=== PATIENT | female | born 1965 | race Caucasian/White ===

== ENCOUNTER 2016-03-21 22:54 | Emergency (ER) | payer OTHER ==
[~2016-03-21] VITALS: Ht 152.4 cm; Wt 62.5 kg
[~2016-03-21 22:54] MED LIST: ASPIR-LOW81 MG PO; ATENOLOL/CHLOR1 EAC1 PO; BRILINTA90 MG PO; CYANOCOBAL1000 MCG/2 IM; ERGOCALCIF50000 UNIT PO; FLUZONE QU IM; HYDROCHLOROTHIA25 MG PO; IBUPROFEN800 MG PO; KLOR-CON M1010 MEQ PO; LEVOTHYROXINE112 MCG PO; LORATADINE10 M2 PO; MOTRIN IB200 MG PO; NITROSTAT0.4 MG SL; SYNTHROID100 MCG PO; TENORMIN50 MG PO; ZOCOR40 MG PO; ZOLOFT50 MG PO
[2016-03-21 23:44] LABS: HEMATOCRIT 39.9 % (36.0-46.0); MCH 30.3 PG (29.0-34.0); MCHC 35.1 G/DL (30.0-36.0); MCV 86.4 FL (83-99); MEAN PLAT.VOLUME 9.6 uM^3 (9.5-12.4); PLATELET COUNT 288 K/uL (156-360); RBC DIS.WIDTH-SD 40.3 % (39-53); RED BLOOD COUNT 4.62 M/uL (3.80-5.20); WHITE BLOOD COUNT 6.1 K/uL (4.1-10.2)
[2016-03-21 23:53] LABS: CHLORIDE 108 mEq/L (99-109); POTASSIUM 3.7 mEq/L (3.7-5.4); SODIUM 143 mEq/L (136-147)
[2016-03-21 23:55] LABS: GLUCOSE 92 mg/dL (70-99)
[2016-03-21 23:57] LABS: ANION GAP 10 MEQ/L (2-14)
[2016-03-21 23:59] LABS: GFR ESTIMATE (CALCULATED) 55 mL/min/
[2016-03-22] LABS: UREA NITROGEN (BUN) 13 mg/dL (9-23)
[2016-03-22 00:36] LABS: TROP-I INTERPRETATION NEGATIVE; TROPONIN-I < 0.01 ng/mL (0.0-0.30)
[2016-03-22 04:09] LABS: TROP-I INTERPRETATION NEGATIVE; TROPONIN-I < 0.01 ng/mL (0.0-0.30)
[2016-03-22 10:17] VITALS: BP 131/83
== END 2016-03-22 10:19 | disposition home or self-care (01) ==
LOC: EME 22:54
PROVIDERS: Personal Emergency Response Attendant
DX: M25.511 Pain in right shoulder (principal); R07.89 Other chest pain; R42 Dizziness and giddiness; I10 Essential (primary) hypertension; E78.5 Hyperlipidemia, unspecified; F17.200 Nicotine dependence, unspecified, uncomplicated
CPT/HCPCS: 80048; 84484; 85027; 93005; 99281; 99284

== ENCOUNTER 2016-08-22 08:46 | Day surgery (SDC) | payer OTHER ==
[~2016-08-22] VITALS: Ht 152.4 cm; Wt 63.0 kg
[~2016-08-22 08:46] MED LIST changes: +ATENOLOL50 MG PO; +LIPITOR40 MG PO
== END 2016-08-22 16:02 | disposition home or self-care (01) ==
LOC: CATH 08:46
DX: R94.39 Abnormal result of other cardiovascular function study (principal); R07.9 Chest pain, unspecified; I25.10 Atherosclerotic heart disease of native coronary artery without angina pectoris; Z95.5 Presence of coronary angioplasty implant and graft; I25.2 Old myocardial infarction; F17.200 Nicotine dependence, unspecified, uncomplicated; E78.5 Hyperlipidemia, unspecified; I10 Essential (primary) hypertension; Z79.82 Long term (current) use of aspirin; Z79.02 Long term (current) use of antithrombotics/antiplatelets; E03.9 Hypothyroidism, unspecified; K21.9 Gastro-esophageal reflux disease without esophagitis
CPT/HCPCS: 93005; C1769; C1887; J1644; J2250; J3010